=== PATIENT | female | born 1955 | race Caucasian/White ===

== ENCOUNTER 2018-04-15 14:12 | Emergency (ER) | payer BC ==
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
[2018-04-15] MEDS ORDERED: Sodium Chloride 0.9% 1000 ML 1,000 ML ONE (14:42)
[2018-04-15] MEDS: Sodium Chloride 0.9% 1000 ML 1,000 ML IV STA (14:43)
[2018-04-15] MEDS ORDERED: Zofran 4 MG/2 ML VIAL ONE (14:44)
[2018-04-15] MEDS: Zofran 4 MG/2 ML VIAL IV ONE (14:44)
[2018-04-15 14:51] LABS: BASOPHIL % 0.2 % (0.0-0.4); Basophil (Absolute #) 0.02 (0-0.4); Eosinophil % 0.8 % (0.00-5.0); Eosinophil (Absolute #) 0.07 (0-0.5); Granulocyte Absolute (ANC) 7.09 (1.4-6.9); Granulocytes % 77.2 % (36.0-66.0); Hematocrit 42.3 % (35-47); Hemoglobin 13.9 gm/dl (12.0-16.0); Lymphocyte (Absolute #) 1.54 (1.0-4.6); Lymphocytes % 16.8 % (24.0-44.0); Mean Cell Volume 91.4 fl (78-100); Mean Corpuscular Hgb Concent. 32.9 g/dl (32-36); Mean Platelet Volume 9.4 fl (6-9.5); Monocyte (Absolute #) 0.46 (0.0-1.3); Platelet Count 337 K/mm3 (150-450); Red Blood Count 4.63 M/mm3 (4.1-5.4); Red Cell Distribution Width 13.1 % (11.5-14.0); White Blood Count 9.2 K/mm3 (4.0-10.5)
[2018-04-15 15:10] LABS: Appearance CLEAR (CLEAR); Bilirubin NEGATIVE (NEGATIVE); Blood NEGATIVE Ery/ul (0-5); Glucose NEGATIVE (NEGATIVE); Ketones NEGATIVE (NEGATIVE); Leukocyte Esterase NEGATIVE (NEGATIVE); Nitrite NEGATIVE (NEGATIVE); Protein,Urine Dip NEGATIVE (Negative); Urobilinogen NORMAL mg/dL (0-1)
[2018-04-15 15:17] LABS: ALBUMIN 4.3 g/dL (3.5-5.0); ALKALINE PHOSPHATASE 103 U/L (38-126); ANION GAP 18.2 MEQ/L (5-15); BLOOD UREA NITROGEN 18 mg/dL (7-17); CHLORIDE 111 mmol/L (98-107); Calcium 8.8 mg/dL (8.4-10.2); Carbon Dioxide 22 mmol/L (22-30); Creatinine 1 0.55 mg/dL (0.52-1.04); ETHYL ALCOHOL 182 mg/dL (0-10); Glucose 121 mg/dL (74-106); SGOT/AST 24 U/L (14-36); SGPT/ALT 24 U/L (0-35); SODIUM 147 mmol/L (137-145); Total Protein 7.4 g/dL (6.3-8.2)
[2018-04-15 15:18] LABS: Amphetamine,Urine NEGATIVE (NEGATIVE); Barbiturate,Urine NEGATIVE (NEGATIVE); Benzodiazepine,Urine NEGATIVE (NEGATIVE); Cocaine,Urine NEGATIVE (NEGATIVE); Methadone,Urine NEGATIVE (NEGATIVE); Opiate,Urine NEGATIVE (NEGATIVE); PCP,Urine NEGATIVE (NEGATIVE); THC,Urine NEGATIVE (NEGATIVE)
[2018-04-15 15:18] LABS: ACETAMINOPHEN < 10 ug/ml (10-30)
[2018-04-15 15:19] LABS: SALICYLATE < 1.0 mg/dL (2-20)
[2018-04-15 15:50] VITALS: BP 139/65; PULSE 73; O2SAT 97
--- NOTE | 2018-04-15 21:03 | XRAY ---
Indication: Head injury following fall. Alcohol intoxication. Multiple contiguous axial images obtained through the head without contrast. Comparison: August 15, 2017. Again normal appearing brain parenchyma, ventricles, and bony calvarium. Visualized paranasal sinuses and mastoid air cells are clear. Impression: Stable normal CT head without contrast exam. CTDI 52.32
== END 2018-04-15 16:08 | disposition home or self-care (01) ==
LOC: ED 14:12
DX: F10.129 Alcohol abuse with intoxication, unspecified (principal); F32.9 Major depressive disorder, single episode, unspecified
CPT/HCPCS: 36000; 36415; 70450; 80053; 80307; 81002; 85025; 96360; 96374; 99284; G0481; J2405; G0480

== ENCOUNTER 2020-04-19 11:59 | Day surgery (SDC) | payer MEDICARE, OTHER ==
[~2020-04-19 11:59] MED LIST: DIPRIVAN 200 MG/20 ML IV ONE; Ketamine HCl 50 MG/ML ONE
[2020-04-19] MEDS ORDERED: Xylocaine 1% Vial 30 ML PF IJ ONE (12:00)
[2020-04-19] MEDS ORDERED: Sodium Chloride 0.9(Preservative Free) 10 ML IJ ONE (12:00)
[2020-04-19] MEDS ORDERED: Depo-Medrol 40 MG/ML IM ONE (12:00)
--- NOTE | 2020-04-19 14:52 | XRAY ---
Indication: Lumbar LUPE. Intraoperative fluoroscopy was provided for 22 seconds. 2 digital spot images submitted for interpretation demonstrates posterior midline needle tip just posterior to the L3-L4. Small amount of contrast injected for needle tip placement. Correlate with intraoperative findings/report.
--- NOTE | 2020-04-19 14:54 | XRAY ---
22 seconds fluoroscopy time in surgery for lumbar LUPE.
[2020-04-19] MEDS ORDERED: Lactated Ringers 1,000 ML IV ONE (15:57)
== END 2020-04-19 14:36 | disposition home or self-care (01) ==
LOC: SDC-PAIN 11:59
PROVIDERS: ATTEND Psychiatry & Neurology Pain Medicine
DX: M54.16 Radiculopathy, lumbar region (principal); F41.8 Other specified anxiety disorders; Z79.899 Other long term (current) drug therapy
CPT/HCPCS: 62323; 72100; 77003; J1030; J2001; J2704; Q9966

== ENCOUNTER 2021-01-31 11:36 | Day surgery (SDC) | payer MEDICARE ==
[2021-01-31] MEDS ORDERED: Sodium Chloride 0.9(Preservative Free) 10 ML IJ ONE (11:37)
[2021-01-31] MEDS ORDERED: Xylocaine 1% Vial 30 ML PF IJ ONE (11:37)
[2021-01-31] MEDS ORDERED: Depo-Medrol 40 MG/ML IM ONE (11:37)
[2021-01-31] MEDS ORDERED: DIPRIVAN 200 MG/20 ML IV ONE (13:10)
--- NOTE | 2021-01-31 13:53 | XRAY ---
Indication: Lumbar LUPE. Intraoperative fluoroscopy was provided for 10 seconds. 2 digital spot images submitted for interpretation demonstrates posterior midline needle tip just posterior to the lumbosacral interspace. Small amount of contrast injected for needle tip placement. Correlate with intraoperative findings/report.
--- NOTE | 2021-01-31 13:58 | XRAY ---
10 seconds fluoroscopy time in surgery for lumbar LUPE.
[2021-01-31] MEDS ORDERED: Lactated Ringers 1,000 ML IV ONE (16:33)
== END 2021-01-31 13:42 | disposition home or self-care (01) ==
LOC: SDC-PAIN 11:36
PROVIDERS: ATTEND Psychiatry & Neurology Pain Medicine
DX: M54.16 Radiculopathy, lumbar region (principal); F41.8 Other specified anxiety disorders; Z79.899 Other long term (current) drug therapy
CPT/HCPCS: 36415; 62323; 72100; 77003; 80053; J1030; J2001; J2704; Q9966

== ENCOUNTER 2021-08-15 13:45 | Day surgery (SDC) | payer MEDICARE ==
[2021-08-15] MEDS ORDERED: Depo-Medrol 40 MG/ML IM ONE (13:46)
[2021-08-15] MEDS ORDERED: Sodium Chloride 0.9% 10 ML FLUSH Syringe IJ ONE (13:46)
[2021-08-15] MEDS ORDERED: Xylocaine 1% Vial 30 ML PF IJ ONE (13:46)
[2021-08-15] MEDS ORDERED: BENADRYL 50 MG/ML ONE (14:19)
[2021-08-15] MEDS ORDERED: DIPRIVAN 200 MG/20 ML IV ONE (15:37)
[2021-08-15] MEDS ORDERED: Lactated Ringers 1,000 ML IV ONE (16:05)
--- NOTE | 2021-08-15 16:32 | XRAY ---
Indication: Lumbar LUPE. Intraoperative fluoroscopy provided for 25 seconds. 2 digital spot images submitted for interpretation demonstrates midline posterior needle tip posterior to L3-L4 interspace. Small amount of contrast injected for needle tip placement. Correlate with intraoperative findings/report.
--- NOTE | 2021-08-15 16:35 | XRAY ---
25 seconds fluoroscopy time in surgery for lumbar LUPE.
== END 2021-08-15 16:17 | disposition home or self-care (01) ==
LOC: SDC-PAIN 13:45
PROVIDERS: ATTEND Psychiatry & Neurology Pain Medicine
DX: M54.16 Radiculopathy, lumbar region (principal); Z79.899 Other long term (current) drug therapy
CPT/HCPCS: 62323; 72100; 77003; J1030; J1200; J2001; J2704; Q9966

== ENCOUNTER 2022-05-22 10:36 | Day surgery (SDC) | payer MEDICARE ==
[2022-05-22] MEDS ORDERED: LIDOCAINE HCL 2% 100 MG/5 ML IJ ONE (10:37)
[2022-05-22] MEDS ORDERED: Sodium Chloride 0.9(Preservative Free) 10 ML IJ ONE (10:37)
[2022-05-22] MEDS ORDERED: Depo-Medrol 40 MG/ML IM ONE (10:37)
[2022-05-22] MEDS ORDERED: BENADRYL 50 MG/ML ONE (11:37)
[2022-05-22] MEDS ORDERED: Lactated Ringers 1,000 ML IV ONE (12:16)
--- NOTE | 2022-05-22 14:09 | XRAY ---
Indication: Lumbar LUPE. Intraoperative fluoroscopy provided for 28 seconds. 2 digital spot image submitted for interpretation demonstrates midline posterior needle tip projecting just posterior to lumbosacral interspace. Small amount of contrast injected for needle tip placement. Correlate with intraoperative findings/report.
--- NOTE | 2022-05-22 14:11 | XRAY ---
28 seconds of fluoroscopy was used in surgery for a lumbar LUPE.
== END 2022-05-22 12:51 | disposition home or self-care (01) ==
LOC: SDC-PAIN 10:36
PROVIDERS: ATTEND Psychiatry & Neurology Pain Medicine
DX: M54.16 Radiculopathy, lumbar region (principal); Z79.899 Other long term (current) drug therapy
CPT/HCPCS: 62323; 72100; 77003; J1030; J1200; Q9966

== ENCOUNTER 2024-06-23 10:00 | Day surgery (SDC) | payer MEDICARE ==
[2024-06-23] MEDS ORDERED: Depo-Medrol 40 MG/ML IM ONE (10:01)
[2024-06-23] MEDS ORDERED: Sodium Chloride 0.9(Preservative Free) 10 ML IJ ONE (10:01)
[2024-06-23] MEDS ORDERED: LIDOCAINE HCL 1% 50 MG/5 ML VL PF IJ ONE (10:01)
[2024-06-23] MEDS ORDERED: DIPRIVAN 200 MG/20 ML IV ONE (11:22)
[2024-06-23] MEDS ORDERED: Zofran 4 MG/2 ML VIAL ONE (11:31)
[2024-06-23] MEDS ORDERED: MORPHINE SULFATE 2 MG INJ ONE (11:41)
--- NOTE | 2024-06-23 13:10 | XRAY ---
Indication: Lumbar LUPE. Intraoperative fluoroscopy was provided for 17 seconds. 3 digital spot image submitted for interpretation demonstrates posterior needle tip projecting posterior to L4-L5 interspace. Small amount of contrast injected for needle tip placement. Correlate with intraoperative findings/report.
--- NOTE | 2024-06-23 14:05 | XRAY ---
17 seconds of fluoroscopy was used in surgery for a lumbar LUPE.
[2024-06-23] MEDS ORDERED: Lactated Ringers 1,000 ML IV ONE (14:18)
== END 2024-06-23 12:08 ==
LOC: SDC-PAIN 10:00
PROVIDERS: ATTEND Psychiatry & Neurology Pain Medicine
DX: M54.16 Radiculopathy, lumbar region (principal)
CPT/HCPCS: 62323; 72100; 77003; J2001; J2270; J2405; J2704; Q9966